=== PATIENT | male | born 1990 | race Two or more races ===

== ENCOUNTER 2021-07-06 14:22 | Emergency (ER) | payer SELFPAY ==
[~2021-07-06] VITALS: Ht 180.3 cm; Wt 61.0 kg
[2021-07-06 14:30] VITALS: BP 102/65
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
[2021-07-06] MEDS ORDERED: AMOX1TAB11 PO (14:49)
== END 2021-07-06 15:00 | disposition home or self-care (01) ==
LOC: ER 14:22
DX: S61.255A Open bite of left ring finger without damage to nail, initial encounter (principal); W50.3XXA Accidental bite by another person, initial encounter; Y93.89 Activity, other specified; Y92.89 Other specified places as the place of occurrence of the external cause; Y99.8 Other external cause status
CPT/HCPCS: 99283